=== PATIENT | male | born 1990 | race Caucasian/White ===

== ENCOUNTER 2016-09-26 22:13 | Emergency (ER) | payer SELFPAY ==
[2016-09-27] MEDS ORDERED: LIDOCAINE/EPI 1% MDV 20 ML ONE (00:07)
== END 2016-09-27 01:17 | disposition home or self-care (01) ==
LOC: ER 22:13
DX: S61.411A Laceration without foreign body of right hand, initial encounter (principal); W26.0XXA Contact with knife, initial encounter; Y93.G3 Activity, cooking and baking; Y92.000 Kitchen of unspecified non-institutional (private) residence as the place of occurrence of the external cause; F10.10 Alcohol abuse, uncomplicated; F17.210 Nicotine dependence, cigarettes, uncomplicated